=== PATIENT | male | born 1940 | race Caucasian/White ===

== ENCOUNTER → 2023-04-16 13:14 | Outpatient (CLI) | payer MEDICARE, OTHER, SELFPAY | PROVIDERS: Family Provider Family Medicine Geriatric Medicine; PCP Student in an Organized Health Care Education/Training Program; Referring Provider Student in an Organized Health Care Education/Training Program; Visit Provider Student in an Organized Health Care Education/Training Program | DX: R06.09 Other forms of dyspnea (principal); Z87.890 Personal history of sex reassignment; J98.8 Other specified respiratory disorders | CPT/HCPCS: 94060; 94726; 94729 ==